=== PATIENT | female | born 2000 | race Caucasian/White ===

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

== ENCOUNTER 2019-01-27 15:09 | Emergency (ER) | payer BC, OTHER ==
--- NOTE | 2019-01-27 15:16 | UC ---
Ear Complaint HPI - HPI Summary HPI Summary: 18 yo female presents with a right ear concern. She tells me that for the last week she has noticed clicking in her right ear. This occurs randomly and is not associated with eating or opening her jaw. Since that time she has also noticed "tingling" in her cheeks and chin - this does not encompass her eyes, forehead, or neck. She tried taking OTC sinus medication with no relief. She denies fever , chills, headache, dizziness, sinus symptoms, sore throat, rash, SOB, chest pain, abdominal pain, n/v, or hx of tick bite. - History of Current Complaint Stated Complaint: RT EAR COMPLAINT Time Seen by Provider: 01/27/19 15:15 Hx Obtained From: Patient Hx Last Menstrual Period: JUST STOPPED DEPO, 11/02/17 SPOTTING Onset/Duration: Sudden Onset Severity Initially: Mild Severity Currently: Mild Pain Intensity: 2 Pain Scale Used: 0-10 Numeric - Allergies/Home Medications Allergies/Adverse Reactions: Allergies Allergy/AdvReac Type Severity Reaction Status Date / Time No Known Allergies Allergy Verified 01/27/19 15:17 Home Medications: Home Medications Bcp 1 tab DAILY 01/27/19 [History Confirmed 01/27/19] PMH/Surg Hx/FS Hx/Imm Hx - Additional Past Medical History Additional PMH: None - Surgical History Surgical History: None - Family History Known Family History: Positive: Hypertension, Diabetes - Social History Occupation: Student Alcohol Use: None Substance Use Type: None Smoking Status (MU): Never Smoked Tobacco - Immunization History Vaccination Up to Date: Yes Review of Systems All Other Systems Reviewed And Are Negative: No Constitutional: Positive: Negative Skin: Positive: Negative Eyes: Positive: Negative ENT: Positive: Ear Ache Respiratory: Positive: Negative Cardiovascular: Positive: Negative Gastrointestinal: Positive: Negative Neurological: Positive: Other - tingling cheeks Psychological: Positive: Negative Physical Exam - Summary Physical Exam Summary: GENERAL: NAD. WDWN. No pain distress. SKIN: No rashes, sores, ulcers, masses, lesions. HEENT: Head: AT/NC. No raccoon eyes or battles sign. Eyes: PERRLA. EOM intact. Conjunctiva clear without inflammation or discharge. Ears: Hearing grossly normal. TMs intact, no bulging, erythema, or edema. No hemotympanum. RIGHT EAR canal with approx 8mm hair stuck to TM. Nose: Nasal mucosa pink and moist. NTTP maxillary and frontal sinus. Throat: Posterior oropharynx without exudates, erythema, or tonsillar enlargement. Uvula midline. NECK: Supple. Nontender. FROM CHEST: CTAB. No r/r/w. No accessory muscle use. Breathing comfortably and in no distress. CV: RRR. Pulses intact. Brisk cap refill. ABDOMEN: Soft. NTTP. Bowel sounds present MSK: FROM in B/L UEs and LEs with symmetric strength. NEURO: A&Ox3. 3 word recall, remote, recent memory, ability to follow 2-step directions, and attention intact. CN: II: Peripheral garcia intact. Vision normal. III, IV, : EOMI. No nystagmus. PERRLA. V: Sensations intact and symmetric. Opens mouth and clenches teeth. VII: No facial asymmetry. Forehead wrinkles. Grins, shuts eyes, frowns, puffs cheeks. VIII: Hearing intact to finger rub. IX, X: Swallows and coughs. Uvula midline. XI: Shrugs shoulders. Turns head against resistance. XII: No tongue deviation [id number] are intact. Gait with normal base. Romberg: maintains balance, no pronator drift. Normal speech. No facial drooping. PSYCH: Age appropriate behavior. Triage Information Reviewed: Yes Vital Signs: Vital Signs: Temp Pulse Resp BP Pulse Ox 97.7 F 87 16 127/87 99 01/27/19 15:18 01/27/19 15:18 01/27/19 15:18 01/27/19 15:18 01/27/19 15:18 Vital Signs Reviewed: Yes Diagnostics - Radiology BRAIN CT Radiology Interpretation Completed By: Radiologist Summary of Radiographic Findings: IMPRESSION: 1. No acute intracranial abnormality by CT. Ear Complaint Course/Dx - Course Course Of Treatment: CT as above. Exam WNL. Discussed case with Dr. Beebe of neurology and he mentions pt could be experiencing palatal myoclonus, but, neurologically, there does not appear to be an acute emergency. Recommends f/u with ENT and if cleared by them - f/u with a neurologist. Discussed the above with pt and will refer her to ENT and neurology for further evaluation. - Differential Dx/Diagnosis Provider Diagnosis: Facial tingling, Clicking tinnitus of right ear Discharge ED - Sign-Out/Discharge Documenting (check all that apply): Patient Departure All imaging exams completed and their final reports reviewed: Yes - Discharge Plan Condition: Stable Disposition: HOME Referrals: Tru Presley MD [Primary Care Provider] - Miyk Valdovinos MD [Medical Doctor] - As Soon As Possible Steven Henry MD [Medical Doctor] - As Soon As Possible Sathya Granados MD [Medical Doctor] - If Needed Additional Instructions: If you develop a fever, shortness of breath, chest pain, new or worsening symptoms - please call your PCP or go to the ED immediately. Your CT scan of your head was normal today. I am unsure the cause of your symptoms today, but your exam was normal. I spoke with our neurologist and he recommends that you see an ear, nose, and throat doctor for further evaluation. Please call Dr. Valdovinos or Dr. Henry at the number below to schedule an appointment for further evaluation - Billing Disposition and Condition Condition: STABLE Disposition: Home
[2019-01-27 15:25] VITALS: BP 127/87
== END 2019-01-27 16:20 | disposition home or self-care (01) ==
LOC: UCCORT 15:09
DX: H93.11 Tinnitus, right ear (principal); R20.2 Paresthesia of skin
CPT/HCPCS: 70450; 99212; G0463